=== PATIENT | male | born 1940 | race Caucasian/White ===

== ENCOUNTER 2020-12-13 11:46 | Emergency (ER) | payer OTHER ==
[~2020-12-13] VITALS: Ht 175.3 cm; Wt 72.6 kg
[~2020-12-13 11:46] MED LIST: ALBU90OI INH; AMLO10 PO; ASPIRIN-DIPYRI1 EACH PO; CLOBET30L TOP; FLUTICASONE-SA1 EAC4; Hydrochloroth12.5 MG PO; LISI20 PO; ROSU5 PO; STRIVERDI RESPIM4 GM; TAMS.4ER PO
[2020-12-13 12:21] LABS: BASOPHILS ABSOLUTE AUTO 0.02 K/mm3 (0.00-0.23); BASOPHILS PERCENT AUTO 0 % (0-2); EOSINOPHILS ABSOLUTE AUTO 0.01 K/mm3 (0.00-0.68); EOSINOPHILS PERCENT AUTO 0 % (0-6); Hematocrit 39.7 % (37.0-53.0); Hemoglobin 13.2 g/dL (13.5-17.5); IMMATURE GRAN ABSOLUTE AUTO 0.02 K/mm3 (0.00-0.10); IMMATURE GRAN PERCENT AUTO 0 % (0-1); LYMPHOCYTES ABSOLUTE AUTO 0.87 K/mm3 (0.84-5.20); LYMPHOCYTES PERCENT AUTO 11 % (21-46); MONOCYTES ABSOLUTE AUTO 0.42 K/mm3 (0.16-1.47); MONOCYTES PERCENT AUTO 5 % (4-13); Mean Corpuscular HGB 31.5 pg (26.0-34.0); Mean Corpuscular HGB Conc 33.2 g/dL (31.5-36.5); Mean Corpuscular Volume 95 fL (80-100); NEUTROPHILS ABSOLUTE AUTO 6.65 K/mm3 (1.96-9.15); NEUTROPHILS PERCENT AUTO 83 % (41-73); Platelet Count 252 K/mm3 (150-400); RDW Coefficient Variation 12.2 % (11.7-14.2); RDW Standard Deviation 42.4 fL (35.1-46.3); Red Blood Cell Count 4.19 M/mm3 (4.30-5.90); White Blood Cell Count 7.99 K/mm3 (4.00-11.30)
[2020-12-13 12:38] LABS: Alanine Aminotransfer (ALT/SGP 21 U/L (12-78); Albumin, Blood 3.8 g/dL (3.4-5.0); Albumin/Globulin Ratio 1.2 (0.8-1.8); Alk Phos 47 U/L (50-136); Anion Gap 4 mmol/L (6-16); Aspartate Aminotrans (AST/SGOT 13 U/L (12-37); Bilirubin, Total 0.5 mg/dL (0.1-1.0); Blood Urea Nitrogen 18 mg/dL (8-24); Bun/Creatinine Ratio 17.1 (12.0-20.0); CO2, Blood 28 mmol/L (21-32); Calcium, Blood 9.1 mg/dL (8.5-10.1); Chloride, Blood 104 mmol/L (98-108); Creatinine, Blood 1.05 mg/dL (0.60-1.20); Globulin, Blood 3.3 g/dL (2.2-4.0); Glomerular Filtration Rate >60 (60-); Glucose, Blood 95 mg/dL (70-99); Sodium, Blood 136 mmol/L (136-145); Total Protein, Blood 7.1 g/dL (6.4-8.2); Troponin I <0.015 ng/mL (0.000-0.040)
[2020-12-13] MEDS ORDERED: BACITO TOP (13:48)
== END 2020-12-13 14:16 | disposition home or self-care (01) ==
LOC: ER 11:46
PROVIDERS: Emergency Medicine
DX: R55 Syncope and collapse (principal); R00.1 Bradycardia, unspecified; T24.211A Burn of second degree of right thigh, initial encounter; T31.0 Burns involving less than 10% of body surface; Z79.899 Other long term (current) drug therapy; X10.0XXA Contact with hot drinks, initial encounter
CPT/HCPCS: 71045; 80053; 82947; 83880; 84484; 85025; 93005; 93010; 93242; 99284-25

== ENCOUNTER 2023-06-18 18:43 | Inpatient (IN) | payer OTHER ==
[~2023-06-18] VITALS: Ht 172.7 cm; Wt 75.7 kg
[~2023-06-18 18:43] MED LIST changes: +BACITO TOP
[2023-06-18 19:16] LABS: BASOPHILS ABSOLUTE AUTO 0.04 K/mm3 (0.00-0.23); BASOPHILS PERCENT AUTO 0 % (0-2); Bicarbonate Venous 21.6 mmol/L (24.0-30.0); EOSINOPHILS ABSOLUTE AUTO 0.01 K/mm3 (0.00-0.68); EOSINOPHILS PERCENT AUTO 0 % (0-6); Hematocrit 45.1 % (37.0-53.0); Hemoglobin 15.2 g/dL (13.5-17.5); IMMATURE GRAN ABSOLUTE AUTO 0.13 K/mm3 (0.00-0.10); IMMATURE GRAN PERCENT AUTO 1 % (0-1); LYMPHOCYTES ABSOLUTE AUTO 2.88 K/mm3 (0.84-5.20); LYMPHOCYTES PERCENT AUTO 14 % (21-46); MONOCYTES ABSOLUTE AUTO 1.71 K/mm3 (0.16-1.47); MONOCYTES PERCENT AUTO 9 % (4-13); Mean Corpuscular HGB 31.5 pg (26.0-34.0); Mean Corpuscular HGB Conc 33.7 g/dL (31.5-36.5); Mean Corpuscular Volume 94 fL (80-100); Mean Platelet Volume 10.8 fL (9.1-12.4); NEUTROPHILS ABSOLUTE AUTO 15.26 K/mm3 (1.96-9.15); NEUTROPHILS PERCENT AUTO 76 % (41-73); PCO2 Venous 49.8 mmHg (38-42); Platelet Count 298 K/mm3 (150-400); RDW Coefficient Variation 12.4 % (11.7-14.2); RDW Standard Deviation 42.8 fL (35.1-46.3); Red Blood Cell Count 4.82 M/mm3 (4.30-5.90); White Blood Cell Count 20.03 K/mm3 (4.00-11.30)
[2023-06-18] MEDS ORDERED: FLUT.05NI (19:19)
[2023-06-18] MEDS ORDERED: Ventolin5 MG/1 ML INH (19:19)
[2023-06-18] MEDS ORDERED: DESONIDE15 G1 (19:20)
[2023-06-18] MEDS ORDERED: PRED20 PO (19:20)
[2023-06-18] MEDS ORDERED: Voltaren100 GM (19:20)
[2023-06-18] MEDS ORDERED: KETO15TC (19:20)
[2023-06-18] MEDS ORDERED: LORA10ER (19:21)
[2023-06-18 19:43] LABS: Albumin, Blood 4.3 g/dL (3.4-5.0); Albumin/Globulin Ratio 0.9 (0.8-1.8); Bun/Creatinine Ratio 25.2 (12.0-20.0); Calcium, Blood 9.9 mg/dL (8.5-10.1); Creatinine, Blood 1.11 mg/dL (0.60-1.20); Globulin, Blood 4.7 g/dL (2.2-4.0)
[2023-06-18 19:50] LABS: Influenza A, PCR NEGATIVE (NEGATIVE); Influenza B, PCR NEGATIVE (NEGATIVE); SARS-Cov-2 (COVID-19) PCR, MMC NEGATIVE (NEGATIVE)
[2023-06-18 19:51] LABS: Resp Syncytial Virus, PCR POSITIVE (NEGATIVE)
[2023-06-18 23:20] VITALS: BP 114/58
--- NOTE | 2023-06-19 00:14 | NUR ---
ADMIT NOTE PATIENT ARRIVED TO PCU 01 VIA STRETCHER. PATIENT IS ALERT AND ORIENTED X4 AND WAS ABLE TO STAND TO TRANSFER TO THE BED. PATIENT IS AUDIBLY WHEEZY WITH TACHYPNIA. RT ADMINISTERED BREATHING TREATMENT. PATIENT SATING 94 ON 3 LITERS O2 VIA NC. VITAL SIGNS STABLE. AT BEDSIDE. WILL CONTINUE TO MONITOR. CALL LIGHT WITHIN REACH.
[2023-06-19 03:48] VITALS: BP 107/51
--- NOTE | 2023-06-19 06:33 | NUR ---
SHIFT SUMMARY PATIENT ALERT AND ORIENTED X4. PATIENT DENIED HAVING ANY CHEST PAIN OR SHORTNESS OF BREATH. PATIENT STATES HE FEELS FINE AND WANTS TO GO HOME TODAY. PATIENT WAS ON 3 LITERS O2 VIA NC WHILE AWAKE AND 5 LITERS WHILE SLEEPING, TRIALED PATIENT ON ROOM AIR AFTER HE WOKE UP THIS MORNING AND HE DESATED TO 87%. PATIENT CURRENTLY ON 2 LITERS O2 VIA NC SATING 92%. VITAL SIGNS STABLE, SINUS RHYTHM ON TELE. WILL CONTINUE TO MONITOR. CALL LIGHT WITHIN REACH.
[2023-06-19 08:00] VITALS: BP 130/99
[2023-06-19 11:55] VITALS: BP 126/74
[2023-06-19 15:14] VITALS: BP 138/81
--- NOTE | 2023-06-19 18:05 | NUR ---
PT SUMMARY: PT SATS KEPT ABOVE 90% ON RA, PT STILL HAS SOME MOIST COUGH AND SOME AUDIBLE WHEEZES BREATHING TX PER RT, PT ALSO DEMONSTRTED USE OF FLUTTER VALVE, VITALS HRR SR 80-100'S, SBP 130'S, AFEBRILE. PT FORGETFUL AT TIMES ALERT AND ORIENTED X3-4, ABLE TO MAKE NEEDS KNOWN. PT AMBULATING SBA TO THE BATHROOM. FAMLIY AT THE BEDSIDE MOSTLY ALL DAY TODAY. PT HAS GREAT APPETITE. PT REMAINS ON IV ABO AND STEROIDS. NO OTHER ISSUES REPORTED FOR THE SHIFT. PT IN BED RESTING CALL LIGHTS IN REACH WILL REPORT TO ONCOMING SHIFT
[2023-06-19 20:37] VITALS: BP 144/97
[2023-06-19 23:31] VITALS: BP 133/107
[2023-06-20 03:27] VITALS: BP 118/91
[2023-06-20 03:44] LABS: BASOPHILS ABSOLUTE AUTO 0.01 K/mm3 (0.00-0.23); BASOPHILS PERCENT AUTO 0 % (0-2); EOSINOPHILS ABSOLUTE AUTO 0.06 K/mm3 (0.00-0.68); EOSINOPHILS PERCENT AUTO 0 % (0-6); Hematocrit 40.8 % (37.0-53.0); Hemoglobin 14.1 g/dL (13.5-17.5); IMMATURE GRAN PERCENT AUTO 1 % (0-1); LYMPHOCYTES ABSOLUTE AUTO 0.53 K/mm3 (0.84-5.20); LYMPHOCYTES PERCENT AUTO 4 % (21-46); MONOCYTES ABSOLUTE AUTO 0.78 K/mm3 (0.16-1.47); MONOCYTES PERCENT AUTO 5 % (4-13); Mean Corpuscular HGB 31.9 pg (26.0-34.0); Mean Corpuscular HGB Conc 34.6 g/dL (31.5-36.5); Mean Corpuscular Volume 92 fL (80-100); Mean Platelet Volume 10.7 fL (9.1-12.4); NEUTROPHILS ABSOLUTE AUTO 13.79 K/mm3 (1.96-9.15); NEUTROPHILS PERCENT AUTO 90 % (41-73); Platelet Count 262 K/mm3 (150-400); RDW Coefficient Variation 12.5 % (11.7-14.2); RDW Standard Deviation 42.7 fL (35.1-46.3); Red Blood Cell Count 4.42 M/mm3 (4.30-5.90); White Blood Cell Count 15.27 K/mm3 (4.00-11.30)
[2023-06-20 04:08] LABS: Bun/Creatinine Ratio 32.1 (12.0-20.0); Calcium, Blood 9.2 mg/dL (8.5-10.1); Creatinine, Blood 1.09 mg/dL (0.60-1.20); Potassium, Blood 3.9 mmol/L (3.5-5.5)
[2023-06-20 05:41] LABS: Base Excess Venous -0.5 mmol/L; Bicarbonate Venous 24.2 mmol/L (24.0-30.0); PCO2 Venous 36.3 mmHg (38-42); pH Blood Venous 7.43 (7.34-7.37)
--- NOTE | 2023-06-20 06:02 | NUR ---
SHIFT SUMMARY PATIENT ALERT AND ORIENTED X4. INDEPENDENT IN ROOM. HAD NO COMPLAINTS OF CHEST PAIN OR SHORTNESS OF BREATH. MEDICATED PER EMAR FOR A SORE THROAT. REQURED 2 LITERS O2 VIA NC WHILE SLEEPING TO MAINTAIN SPO2 >90%. LUNG SOUNDS WHEEZY. VITAL SIGNS STABLE. PATIENT KEEPS ASKING IF HE'S GOING TO BE ABLE TO GO HOME TODAY, STATES THAT HE FEELS MUCH BETTER. NO ACUTE ISSUES NOTED OVERNIGHT. WILL CONTINUE TO MONITOR. CALL LIGHT WITHIN REACH.
[2023-06-20 09:39] VITALS: BP 122/78
[2023-06-20] MEDS ORDERED: Acetaminophen650 M1 PO (11:50)
--- NOTE | 2023-06-20 13:32 | NUR ---
DISCHARGE: PT D/C PCU 1 @1215 VIA WHEELCHAIR. EDUCATION AND DISCHARGE INSTRUCTIONS PROVIDED TO FAMILY AND PT. ALL BELONGINGS WITH PT.
[2023-06-20] MEDS ORDERED: Aspir 8181 MG PO (19:32)
[2023-06-22] MEDS ORDERED: ELIQUIS5 M2 PO (15:22)
[2023-06-22] MEDS ORDERED: DILTIAZEM 24HR240 M4 PO (15:22)
[2023-06-22] MEDS ORDERED: IPRAT-ALBUT 0.5-3 ML INH (15:23)
== END 2023-06-20 12:53 | disposition home or self-care (01) | DRG 193 ==
LOC: ER 18:43 → ERHOLD 20:05 → PCU 20:05 → EDBEDREQ 20:06 → PCU 23:02
PROVIDERS: Internal Medicine; Student in an Organized Health Care Education/Training Program; ADMIT Internal Medicine
DX: J12.1 Respiratory syncytial virus pneumonia (principal); J96.01 Acute respiratory failure with hypoxia; J21.0 Acute bronchiolitis due to respiratory syncytial virus; J44.0 Chronic obstructive pulmonary disease with (acute) lower respiratory infection; J44.1 Chronic obstructive pulmonary disease with (acute) exacerbation; E87.20 Acidosis, unspecified; I48.91 Unspecified atrial fibrillation; I25.10 Atherosclerotic heart disease of native coronary artery without angina pectoris; I10 Essential (primary) hypertension; I73.9 Peripheral vascular disease, unspecified; Z86.73 Personal history of transient ischemic attack (TIA), and cerebral infarction without residual deficits; Z85.828 Personal history of other malignant neoplasm of skin; Z87.19 Personal history of other diseases of the digestive system; N40.0 Benign prostatic hyperplasia without lower urinary tract symptoms; Z90.49 Acquired absence of other specified parts of digestive tract; Z87.891 Personal history of nicotine dependence; Z88.8 Allergy status to other drugs, medicaments and biological substances; Z79.82 Long term (current) use of aspirin; Z79.811 Long term (current) use of aromatase inhibitors; Z79.899 Other long term (current) drug therapy
CPT/HCPCS: 0241U; 36415; 71045; 80048; 80053; 82803; 83880; 84145; 84484; 85025; 93005; 93010; 94640; 94644; 94664; 94760; 96365; 96366; 96368; 99285-25; A9270; C9113; J0456; J0696; J1650; J2930; J7050

== ENCOUNTER 2023-07-14 09:11 | Emergency (ER) | payer OTHER ==
[~2023-07-14] VITALS: Ht 172.7 cm; Wt 77.6 kg
[~2023-07-14 09:11] MED LIST changes: +Acetaminophen650 M1 PO; +Aspir 8181 MG PO; +DESONIDE15 G1; +DILTIAZEM 24HR240 M4 PO; +ELIQUIS5 M2 PO; +FLUT.05NI; +IPRAT-ALBUT 0.5-3 ML INH; +KETO15TC; +LORA10ER; +PRED20 PO; +Ventolin5 MG/1 ML INH; +Voltaren100 GM
[2023-07-14 09:26] VITALS: BP 125/77
[2023-07-14] MEDS ORDERED: Zithromax250 MG PO (09:31)
== END 2023-07-14 10:45 | disposition home or self-care (01) ==
LOC: ER 09:11
DX: R22.0 Localized swelling, mass and lump, head (principal); I73.9 Peripheral vascular disease, unspecified; I10 Essential (primary) hypertension; N40.0 Benign prostatic hyperplasia without lower urinary tract symptoms; I25.10 Atherosclerotic heart disease of native coronary artery without angina pectoris; T50.905A Adverse effect of unspecified drugs, medicaments and biological substances, initial encounter; Z79.899 Other long term (current) drug therapy; Z79.01 Long term (current) use of anticoagulants; Z86.73 Personal history of transient ischemic attack (TIA), and cerebral infarction without residual deficits
CPT/HCPCS: 99283

== ENCOUNTER 2023-08-01 12:39 | Emergency (ER) | payer OTHER ==
[~2023-08-01] VITALS: Ht 172.7 cm; Wt 76.7 kg
[~2023-08-01 12:39] MED LIST changes: +Zithromax250 MG PO
[2023-08-01 13:12] LABS: BASOPHILS ABSOLUTE AUTO 0.03 K/mm3 (0.00-0.23); BASOPHILS PERCENT AUTO 1 % (0-2); EOSINOPHILS PERCENT AUTO 2 % (0-6); Hematocrit 40.2 % (37.0-53.0); Hemoglobin 13.4 g/dL (13.5-17.5); IMMATURE GRAN ABSOLUTE AUTO 0.04 K/mm3 (0.00-0.10); IMMATURE GRAN PERCENT AUTO 1 % (0-1); LYMPHOCYTES ABSOLUTE AUTO 1.05 K/mm3 (0.84-5.20); LYMPHOCYTES PERCENT AUTO 16 % (21-46); MONOCYTES ABSOLUTE AUTO 0.68 K/mm3 (0.16-1.47); MONOCYTES PERCENT AUTO 10 % (4-13); Mean Corpuscular HGB 30.8 pg (26.0-34.0); Mean Corpuscular HGB Conc 33.3 g/dL (31.5-36.5); Mean Corpuscular Volume 92 fL (80-100); Mean Platelet Volume 9.7 fL (9.1-12.4); NEUTROPHILS ABSOLUTE AUTO 4.72 K/mm3 (1.96-9.15); NEUTROPHILS PERCENT AUTO 71 % (41-73); Platelet Count 265 K/mm3 (150-400); RDW Coefficient Variation 12.6 % (11.7-14.2); RDW Standard Deviation 42.9 fL (35.1-46.3); Red Blood Cell Count 4.35 M/mm3 (4.30-5.90); White Blood Cell Count 6.62 K/mm3 (4.00-11.30)
[2023-08-01 13:35] LABS: Influenza A, PCR NEGATIVE (NEGATIVE); Influenza B, PCR NEGATIVE (NEGATIVE); Resp Syncytial Virus, PCR NEGATIVE (NEGATIVE); SARS-Cov-2 (COVID-19) PCR, MMC NEGATIVE (NEGATIVE)
[2023-08-01 13:41] LABS: Albumin, Blood 3.4 g/dL (3.4-5.0); Albumin/Globulin Ratio 0.8 (0.8-1.8); Bilirubin, Total 0.4 mg/dL (0.1-1.0); Bun/Creatinine Ratio 20.5 (12.0-20.0); Calcium, Blood 9.3 mg/dL (8.5-10.1); Creatinine, Blood 0.88 mg/dL (0.60-1.20); Globulin, Blood 4.1 g/dL (2.2-4.0); Potassium, Blood 3.8 mmol/L (3.5-5.5); Total Protein, Blood 7.5 g/dL (6.4-8.2)
[2023-08-01] MEDS ORDERED: LISINOPRIL2.5 MG (14:48)
[2023-08-01 16:45] VITALS: BP 144/58
== END 2023-08-01 16:58 | disposition home or self-care (01) ==
LOC: ER 12:39
PROVIDERS: Student in an Organized Health Care Education/Training Program
DX: R06.02 Shortness of breath (principal); Z88.0 Allergy status to penicillin; Z88.8 Allergy status to other drugs, medicaments and biological substances; Z79.51 Long term (current) use of inhaled steroids; Z79.01 Long term (current) use of anticoagulants; Z79.899 Other long term (current) drug therapy; I10 Essential (primary) hypertension; I48.91 Unspecified atrial fibrillation; Z86.73 Personal history of transient ischemic attack (TIA), and cerebral infarction without residual deficits; Z87.891 Personal history of nicotine dependence
CPT/HCPCS: 0241U; 71046; 80053; 83880; 84484; 85025; 93005; 93010; 99284-25

== ENCOUNTER 2023-08-07 18:39 | Observation (INO) | payer OTHER ==
[~2023-08-07] VITALS: Ht 170.2 cm; Wt 72.6 kg
[~2023-08-07 18:39] MED LIST changes: +Prinivil10 MG PO
[2023-08-07 19:14] LABS: Bicarbonate Venous 25.4 mmol/L (24.0-30.0); PCO2 Venous 52.7 mmHg (38-42); pH Blood Venous 7.34 (7.34-7.37)
[2023-08-07 19:18] LABS: BASOPHILS ABSOLUTE AUTO 0.02 K/mm3 (0.00-0.23); BASOPHILS PERCENT AUTO 0 % (0-2); EOSINOPHILS PERCENT AUTO 2 % (0-6); Hematocrit 38.7 % (37.0-53.0); IMMATURE GRAN ABSOLUTE AUTO 0.02 K/mm3 (0.00-0.10); IMMATURE GRAN PERCENT AUTO 0 % (0-1); LYMPHOCYTES PERCENT AUTO 18 % (21-46); MONOCYTES ABSOLUTE AUTO 0.74 K/mm3 (0.16-1.47); MONOCYTES PERCENT AUTO 11 % (4-13); Mean Corpuscular HGB 31.1 pg (26.0-34.0); Mean Corpuscular HGB Conc 33.6 g/dL (31.5-36.5); Mean Corpuscular Volume 93 fL (80-100); Mean Platelet Volume 10.4 fL (9.1-12.4); NEUTROPHILS ABSOLUTE AUTO 4.43 K/mm3 (1.96-9.15); NEUTROPHILS PERCENT AUTO 68 % (41-73); Platelet Count 254 K/mm3 (150-400); RDW Coefficient Variation 12.6 % (11.7-14.2); Red Blood Cell Count 4.18 M/mm3 (4.30-5.90); White Blood Cell Count 6.51 K/mm3 (4.00-11.30)
[2023-08-07 19:30] LABS: Albumin, Blood 3.4 g/dL (3.4-5.0); Albumin/Globulin Ratio 0.9 (0.8-1.8); Bilirubin, Total 0.4 mg/dL (0.1-1.0); Bun/Creatinine Ratio 22.7 (12.0-20.0); Calcium, Blood 9.1 mg/dL (8.5-10.1); Creatinine, Blood 0.84 mg/dL (0.60-1.20); Globulin, Blood 3.8 g/dL (2.2-4.0); Magnesium, Blood 2.2 mg/dL (1.6-2.4); Potassium, Blood 3.9 mmol/L (3.5-5.5); Total Protein, Blood 7.2 g/dL (6.4-8.2)
[2023-08-07 19:32] LABS: International Normalized Ratio 1.06; Prothrombin Time Results 11.1 Sec (9.7-11.5)
[2023-08-08 00:44] VITALS: BP 163/147
--- NOTE | 2023-08-08 01:44 | NUR ---
PT ARRIVED TO FLOOR AND AMBULATED TO BED WITH SBA. PT HAS EQUAL PUSH PULLS AND STRENGTH X 4. PT ABLE TO SMILE PUFF OUT CHEEKS WITH SOME EFFORT AND STICK OUT TOUNGE, NO DEVIATION. PT HAVING SOME DIFFICULTY WITH FALLOWING COMANDS. PT HAVING SOME DIFFICULTY WITH WORD FINDING. PT UNABLE TO SAY WHAT MONTH OR DAY BUT CAN NAME WHO IS PRESEDENT. CALL LIGHT IN REACH. PT HAD C/O BRUNER AND WAS GIVEN TYLENOL AND MED FOR SBP GRATER TAHN 160. PT KEPT SETTING OFF ALARM. PT APPARENTLY SLEEPS IN RECLINER AT HOME. CAHIR ALARM ON.
[2023-08-08 05:41] LABS: BASOPHILS ABSOLUTE AUTO 0.03 K/mm3 (0.00-0.23); BASOPHILS PERCENT AUTO 0 % (0-2); EOSINOPHILS ABSOLUTE AUTO 0.07 K/mm3 (0.00-0.68); EOSINOPHILS PERCENT AUTO 1 % (0-6); Hematocrit 38.5 % (37.0-53.0); Hemoglobin 13.2 g/dL (13.5-17.5); IMMATURE GRAN ABSOLUTE AUTO 0.04 K/mm3 (0.00-0.10); IMMATURE GRAN PERCENT AUTO 0 % (0-1); LYMPHOCYTES ABSOLUTE AUTO 0.97 K/mm3 (0.84-5.20); LYMPHOCYTES PERCENT AUTO 10 % (21-46); MONOCYTES ABSOLUTE AUTO 0.78 K/mm3 (0.16-1.47); MONOCYTES PERCENT AUTO 8 % (4-13); Mean Corpuscular HGB 31.3 pg (26.0-34.0); Mean Corpuscular HGB Conc 34.3 g/dL (31.5-36.5); Mean Corpuscular Volume 91 fL (80-100); Mean Platelet Volume 10.3 fL (9.1-12.4); NEUTROPHILS ABSOLUTE AUTO 8.32 K/mm3 (1.96-9.15); NEUTROPHILS PERCENT AUTO 82 % (41-73); Platelet Count 236 K/mm3 (150-400); RDW Coefficient Variation 12.7 % (11.7-14.2); RDW Standard Deviation 42.1 fL (35.1-46.3); Red Blood Cell Count 4.22 M/mm3 (4.30-5.90); White Blood Cell Count 10.21 K/mm3 (4.00-11.30)
--- NOTE | 2023-08-08 05:50 | NUR ---
SHIFT SUMMERY. PT NOT SEEMING TO HAVE PHYSICAL DEFFICETS. BUT PT PT HAS DELAYED RESPONSES. DIFFICULTY WITH WORD FINDING AND NOT SEEEMING TO UNDERSTAND VERBAL COMANDS GIVEN. PT SOME WHAT CONFUSED PULLING OFF TELE AND ATTEMPTING TO PULL OUT IV. CALL LIGHT IN REACH , BED ALARM ON ,
[2023-08-08 06:07] LABS: Bun/Creatinine Ratio 23.8 (12.0-20.0); Creatinine, Blood 0.71 mg/dL (0.60-1.20); Potassium, Blood 3.7 mmol/L (3.5-5.5)
[2023-08-08 06:08] LABS: CHOL/HDL RATIO 2.9; Cholesterol 123 mg/dL (50-200); HDL Cholesterol 42 mg/dL (>39); LDL/HDL RATIO 1.5; Low Density Lipoprotein Chol 61 mg/dL (0-110); Triglycerides 98 mg/dL (30-160); Very Low Density Lipoprot Chol 19 mg/dL (6-32)
[2023-08-08 08:10] VITALS: BP 150/105
[2023-08-08 11:10] VITALS: BP 129/73
[2023-08-08 15:18] VITALS: BP 114/75
[2023-08-08 19:31] VITALS: BP 134/69
--- NOTE | 2023-08-08 19:37 | NUR ---
SHIFT SUMMARY PATIENT WORKED WITH ALL THERAPIES TODAY, DIFFICULTY FOLLOWING INSTRUCTION BUT ABLE TO WALK SBA TO BATHROOM WITH NO DEVICES. FORGETFUL, MOSTLY COOPERATIVE. NEUROS NEGATIVE ON ASSESSMENT. BED ALARM SORTER UPHOLSTERY PARTS LIGHT IN REACH. PATIENT DOES NOT CALL. FAMILY AT BEDSIDE THIS EVENING UNTIL DINNER.
[2023-08-08] MEDS ORDERED: ALBU90OI INH (20:22)
[2023-08-08] MEDS ORDERED: Acetaminophen650 M1 PO (20:22)
[2023-08-09] MEDS ORDERED: DESONIDE TOP (01:07)
[2023-08-09] MEDS ORDERED: FLONASE ALLERG9.9 M2 (01:08)
[2023-08-09] MEDS ORDERED: Ketoconazole120 ML TOP (01:09)
[2023-08-09] MEDS ORDERED: MULVITA PO (01:09)
--- NOTE | 2023-08-09 02:25 | NUR ---
SHIFT SUMMERY, PT RESTSING IN BED AT THIS TIME BUT DOSE NOT APPEAR TO BE ASLEEP. PT HAD TAKEN OFF TELE SEVERAL TIMES THIS SHIFT BUT ALLOWED TELE TO BE PLACED BACK ON AFTER EXSPLANING DR WANTED IT ON DUE TO PT HAVEING A TIA. ABOUT [phone]. PT BECAME VERY ANGERY AND WAS YELLING AT OIL HEATERMAN WHO WAS TRYING TO PLACE TELE BACK ON THIS NURSE WENT IN TO ROOM AND TALKED WITH PT AND AGAIN EXSPALNED PT HAD A TIA AND TELE WAS TO MONITOR PTS HEART AND TRY TO KEEP HIM SAFE BY LETTING US KNOW IF SOMETHING UNUSUAL WAS HAPPENING. PT YELED AND SAID HE WAS AN ADULT HE WAS 58 { PT IS 82} AND HE WAS NOT GOING TO HAVE ANY ONE TELL HIM WHAT TO DO. PT SAID HE WANTED TO LEAVE. TOLD PT HE WOULD HAVE TO SIGH PAPER TO GO AMA. WAS HOPEING TO TALK WITHS PTS TO SEE IF SHE COULD CALM PT DOWN AND CHANGE HIS MIND. PT FALLOWED THIS NURSE TO SEE CHARGE NURSE. TRYED TO FIND PTS WIFES PHONE NUMBER [id number] BESS OUT TO BE THE PHONE PT HAD. PTS HAD LEFT HER PHONE FOR PT SO HE COULD HAVE A PHONE. NO OTHER NUMBERS TO CALL FOR FAMILY ON PTS CHART. PT USED PHONE AND CALLED HIS DAUGHTER WHO WAS AT PTS HOUSE WITH PTS . SAKED PT IF I COULD TALK TO DAUGHTER AND PT SATED NO. WAS PUT ON PHONE AND I ASKED IF I COULD TALK TO HER AND PT SAID NO. PT EVENTUALY ALLOWED ME TO SPEAK WITH HIS . TOLD WHAT THE PROB SEEMED TO BE. AND AFTER QUITE A WHILE PT HUNG UP PHONE TURNED OFF LIGHT AND LAYED DOWN IN BED. PT OCCASIONALY UP IN [address]. LET PT ALONE FOR A WHILE IN HOPES PT WOULD ALLOW TELE BACK ON BUT PT REFUSED RIVERA HYDE CALLED AND TELE DC. PT NTO SEEMING TO HAVE PAIN AND HE IS ABLE TO MOVE AND WALK WNL PT ABLE TO TALK WITH MUCH LESS HESITATIONE THEN THE NIGHT BEFORE, BUT THINKING SOME WHAT CONFUSED. PT HAS CALL LIGHT IN REACH.
[2023-08-09 07:21] VITALS: BP 112/89
[2023-08-09] MEDS ORDERED: ASPI81CH PO (10:55)
[2023-08-09] MEDS ORDERED: Desowen60 GM TOP (10:57)
--- NOTE | 2023-08-09 11:25 | NUR ---
SHIFT/DISCHARGE SUMMARY Pt up in bathroom at shift change this am. Pt dressed and wants to go home. Ambulating with steady gait. IV found on recliner. Pt alert x2 this am. Calm and cooperative. POC reviewed with return verbal understanding. Pt agrees to wait for Dr to round before leaving. and daughter at bedside mid morning speaking with Dr. Chin. All discharge instructions reviewed with pt and . Pt to lobby with family.
== END 2023-08-09 11:44 | disposition home or self-care (01) ==
LOC: ER 18:39 → MEDS 18:40 → ER 08-08 00:10 → MEDS 08-08 00:10 → ENPENDDIS 08-09 10:32 → MEDS 08-09 11:44
PROVIDERS: Student in an Organized Health Care Education/Training Program; ADMIT Internal Medicine
DX: I63.9 Cerebral infarction, unspecified (principal); I48.91 Unspecified atrial fibrillation; I16.1 Hypertensive emergency; I10 Essential (primary) hypertension; I25.10 Atherosclerotic heart disease of native coronary artery without angina pectoris; Z87.891 Personal history of nicotine dependence
CPT/HCPCS: 36415; 70450; 80048; 80053; 80061; 82803; 82947; 83036; 83735; 85025; 85610; 92523; 92610; 93005; 93010; 93306; 93880; 96374; 97112; 97161; 97165; 97535; 99285-25; A9270; G0378; J0360

== ENCOUNTER 2023-08-20 20:25 | Observation (INO) | payer OTHER ==
[~2023-08-20] VITALS: Ht 182.9 cm; Wt 90.7 kg
[~2023-08-20 20:25] MED LIST changes: +ASPI81CH PO; +DESONIDE TOP; +Desowen60 GM TOP; +FLONASE ALLERG9.9 M2; +Ketoconazole120 ML TOP; +MULVITA PO
[2023-08-20] MEDS ORDERED: Ondansetron HCl 2 MG / ML 2ML Vial IV ONE (20:45)
[2023-08-20] MEDS ORDERED: Ondansetron HCl 2 MG / ML 2ML Vial ONE (20:46)
[2023-08-20 21:09] LABS: BASOPHILS ABSOLUTE AUTO 0.03 K/mm3 (0.00-0.23); BASOPHILS PERCENT AUTO 0 % (0-2); EOSINOPHILS ABSOLUTE AUTO 0.14 K/mm3 (0.00-0.68); EOSINOPHILS PERCENT AUTO 2 % (0-6); Hematocrit 38.7 % (37.0-53.0); Hemoglobin 13.2 g/dL (13.5-17.5); IMMATURE GRAN ABSOLUTE AUTO 0.03 K/mm3 (0.00-0.10); IMMATURE GRAN PERCENT AUTO 0 % (0-1); LYMPHOCYTES ABSOLUTE AUTO 1.05 K/mm3 (0.84-5.20); LYMPHOCYTES PERCENT AUTO 14 % (21-46); MONOCYTES ABSOLUTE AUTO 0.52 K/mm3 (0.16-1.47); MONOCYTES PERCENT AUTO 7 % (4-13); Mean Corpuscular HGB 31.2 pg (26.0-34.0); Mean Corpuscular HGB Conc 34.1 g/dL (31.5-36.5); Mean Corpuscular Volume 92 fL (80-100); Mean Platelet Volume 9.9 fL (9.1-12.4); NEUTROPHILS PERCENT AUTO 76 % (41-73); Platelet Count 266 K/mm3 (150-400); RDW Coefficient Variation 12.8 % (11.7-14.2); RDW Standard Deviation 42.7 fL (35.1-46.3); Red Blood Cell Count 4.23 M/mm3 (4.30-5.90); White Blood Cell Count 7.37 K/mm3 (4.00-11.30)
[2023-08-20 21:27] LABS: Alanine Aminotransfer (ALT/SGP 21 U/L (12-78); Albumin, Blood 3.7 g/dL (3.4-5.0); Alk Phos 66 U/L (50-136); Anion Gap 5 mmol/L (6-16); Aspartate Aminotrans (AST/SGOT 21 U/L (12-37); Bilirubin, Total 0.3 mg/dL (0.1-1.0); Blood Urea Nitrogen 20 mg/dL (8-24); Bun/Creatinine Ratio 19.2 (12.0-20.0); CO2, Blood 27 mmol/L (21-32); Chloride, Blood 109 mmol/L (98-108); Creatinine, Blood 1.04 mg/dL (0.60-1.20); Ethanol (Alcohol), Blood, Med <3 mg/dL; Globulin, Blood 3.7 g/dL (2.2-4.0); Glomerular Filtration Rate 71 (60-); Glucose, Blood 118 mg/dL (70-99); Potassium, Blood 3.9 mmol/L (3.5-5.5); Sodium, Blood 141 mmol/L (136-145); Total Protein, Blood 7.4 g/dL (6.4-8.2)
[2023-08-20] MEDS ORDERED: Metoclopramide HCl 5MG / ML 2ML Vial IV ONE (22:05)
[2023-08-20] MEDS ORDERED: DiphenhydrAMINE HCl 50 MG/ML 1ML Vial IV ONE (22:05)
[2023-08-20 22:36] LABS: Source, Urine Clean Catch
[2023-08-20 23:04] LABS: Bilirubin, Urine Neg (Neg); Blood, Urine Neg (Neg); Glucose Qualitative, Urine Neg (Neg); Ketones, Urine Neg (Neg); Leukocyte Esterase, Urine Neg (Neg); Nitrite, Urine Neg (Neg); Protein, Urine Neg (Neg); Urobilinogen, Urine NORM (Normal)
[2023-08-20] MEDS ORDERED: Magnesium Sulf 2 GM/Water 50ML 50 ML IV ONE (23:05)
[2023-08-20] MEDS ORDERED: NS 1,000 ML IV SCH (23:05)
[2023-08-20 23:18] LABS: Appearance, Urine Clear (Clear); Color, Urine Yellow (P-Yellow)
[2023-08-20 23:29] LABS: U Amphetamine Screen Not Detected; U Barbituate Screen Not Detected; U Benzodiazapine Screen Not Detected; U Buprenorphine Screen Not Detected; U Cannabinoids Screen Not Detected; U Cocaine Screen Not Detected; U Methadone Screen Not Detected; U Methamphetamine Screen Not Detected; U Opiates Screen Not Detected; U Oxycodone Screen Not Detected; U Phencyclidine Screen Not Detected
[2023-08-20] MEDS ORDERED: LISINOPRIL 20 MG TAB (23:48)
[2023-08-21] MEDS ORDERED: HydrALAZINE HCl 20 MG / ML 1ML Vial IV PRN (01:10)
[2023-08-21 01:21] VITALS: BP 180/90
[2023-08-21] MEDS ORDERED: FLU VACC QS2023-24(6MOS UP)/PF 60 MCG/0.5 ML SYRINGE IM ONE (01:30)
--- NOTE | 2023-08-21 02:08 | NUR ---
0108: ASSUMED CARE OF PT, REPORT RECEIVED FROM PANCHO RN AND MALLY RN FROM ED. D/T UNKNOWN REASONING, MAGNESIUM WAS NOT PROVIDED IN THE ED AND WILL BE GIVEN UPON ARRIVAL TO THE UNIT PER ORDERS. PT IS ALERT, UNABLE TO ASSESS ORIENTION ACCURATLY AT THIS TIME R/T APHASIA. WILL ATTEMPT ASSESSMENT WITH WHITE BOARD AND PEN WHEN PT WAKES. ABLE TO ANSWER SOME QUESTIONS, FOLLOWS INSTRUCTIONS WELL. PIV TO LEFT AC IS PATENT, WITHOUT REDNESS OR WELLING, INFUSING MAGNESIUM WITHOUT ISSUE. ONE SMALL SCRATCH TO UPPER LEFT SIDE BACK. PT IS ABLE TO MOVE HIMSELF IN BED WITHOUT DIFFICULTY. SEE EMR FOR FULL ASSESSMENT. BED ALARM IS ON, CALL LIGHT IS WITHIN REACH. PT EDUCATED WATER PUMP ASSEMBLER LIGHT, FALL PREVENTION, ROOM/BED ORIENTATION. EDUCATED ON MEDICATIONS, PLAN FOR FURTHER ASSESSMENTS/FUTURE ORDERS. PT ACKNOLEDGES UNDERSTANDING. PLAN FOR BEDSIDE SWALLOW WHEN PT WAKES UP. CURRENTLY LAYING IN BED WITH EYES CLOSED, BREATHING IS EVEN AND UNLABORED. PT REPORTS HE DOES BECOME SOB WITH AMBULATION AT TIMES.
[2023-08-21 02:33] VITALS: BP 177/86
--- NOTE | 2023-08-21 04:37 | NUR ---
0425: PT LAYING IN BED WITH EYES CLOSED, BREATHING IS EVEN AND UNLABORED, BED ALARM IS ON, CALL LIGHT WITHIN REACH. NEEDS ADDRESSED THROUGH THE NIGHT.
--- NOTE | 2023-08-21 04:50 | NUR ---
0450: PT SET OFF BED ALARM UP WALKING TO FIND A BATHROOM IN THE ROOM. STEADY INDEPENDENT GAIT. VOIDED IN TOILET, UNMEASURED R/T NOT ABLE TO INTERCEPT PT. BACK TO BED WITHOUT ISSUE. ASSISTED FOR COMFORT. BED ALARM IS ON, CALL LIGHT WITHIN REACH.
[2023-08-21 05:05] LABS: Hemoglobin 12.4 g/dL (13.5-17.5)
[2023-08-21 05:21] LABS: Bun/Creatinine Ratio 20.2 (12.0-20.0); Calcium, Blood 8.5 mg/dL (8.5-10.1); Creatinine, Blood 0.79 mg/dL (0.60-1.20); Potassium, Blood 3.9 mmol/L (3.5-5.5)
[2023-08-21] MEDS ORDERED: Acetaminophen 325 MG TABLET PO PRN (06:50)
[2023-08-21 07:15] VITALS: BP 182/96
[2023-08-21] MEDS ORDERED: Lisinopril 20 MG Tab PO SCH (09:00)
[2023-08-21] MEDS ORDERED: Aspirin 81 MG Chew PO SCH (09:00)
[2023-08-21] MEDS ORDERED: Apixaban 5 MG Tab PO SCH (09:00)
[2023-08-21] MEDS ORDERED: dilTIAZem HCL 240 MG CAP.CD PO SCH (09:00)
[2023-08-21 10:33] VITALS: BP 179/63
[2023-08-21 11:16] VITALS: BP 170/79
[2023-08-21 11:45] VITALS: BP 149/71
[2023-08-21] MEDS ORDERED: LISI20 PO (15:24)
--- NOTE | 2023-08-21 16:26 | NUR ---
DISCHARGE NOTE PT DISCHARGED TO HOME, PICKED UP BY HIS FAMILY. IV REMOVED. DISCHARGE INFORMATION AND EDUCATION PROVIDED. MEDICATIONS FAXED TO THE PHARMACY OF HIS CHOICE.
== END 2023-08-21 16:25 | disposition home or self-care (01) ==
LOC: ER 20:25 → MEDS 20:26
PROVIDERS: Emergency Medicine; Family Medicine; Student in an Organized Health Care Education/Training Program; ADMIT Internal Medicine
DX: G45.9 Transient cerebral ischemic attack, unspecified (principal); I10 Essential (primary) hypertension; I48.20 Chronic atrial fibrillation, unspecified; D64.9 Anemia, unspecified; I25.10 Atherosclerotic heart disease of native coronary artery without angina pectoris; Z87.891 Personal history of nicotine dependence; Z88.0 Allergy status to penicillin; Z88.8 Allergy status to other drugs, medicaments and biological substances; Z79.01 Long term (current) use of anticoagulants; Z79.82 Long term (current) use of aspirin; Z79.899 Other long term (current) drug therapy
CPT/HCPCS: 36415; 70450; 70496; 70498; 80048; 80053; 81003; 82947; 85014; 85018; 85025; 93005; 93010; 96365; 96366; 96374; 96375; 97110; 97129; 97130; 97161; 97165; 97530; 99285-25; A9270; G0378; J0360; J1200; J2405; J2765; J3475; J7030; Q9967

== ENCOUNTER 2024-02-02 18:50 | Emergency (ER) | payer OTHER ==
[~2024-02-02] VITALS: Ht 172.7 cm; Wt 77.1 kg
[~2024-02-02 18:50] MED LIST changes: +LISINOPRIL 20 MG TAB
[2024-02-02] MEDS ORDERED: Lactated Ringer's 1,000 ML IV ONE (19:00)
[2024-02-02 19:27] LABS: BASOPHILS ABSOLUTE AUTO 0.03 K/mm3 (0.00-0.23); BASOPHILS PERCENT AUTO 0 % (0-2); EOSINOPHILS ABSOLUTE AUTO 0.07 K/mm3 (0.00-0.68); EOSINOPHILS PERCENT AUTO 1 % (0-6); Hematocrit 37.8 % (37.0-53.0); Hemoglobin 12.7 g/dL (13.5-17.5); IMMATURE GRAN ABSOLUTE AUTO 0.03 K/mm3 (0.00-0.10); IMMATURE GRAN PERCENT AUTO 0 % (0-1); LYMPHOCYTES PERCENT AUTO 12 % (21-46); MONOCYTES ABSOLUTE AUTO 0.52 K/mm3 (0.16-1.47); MONOCYTES PERCENT AUTO 8 % (4-13); Mean Corpuscular HGB 30.7 pg (26.0-34.0); Mean Corpuscular HGB Conc 33.6 g/dL (31.5-36.5); Mean Corpuscular Volume 91 fL (80-100); Mean Platelet Volume 10.3 fL (9.1-12.4); NEUTROPHILS ABSOLUTE AUTO 5.45 K/mm3 (1.96-9.15); NEUTROPHILS PERCENT AUTO 79 % (41-73); Platelet Count 235 K/mm3 (150-400); RDW Standard Deviation 43.4 fL (35.1-46.3); Red Blood Cell Count 4.14 M/mm3 (4.30-5.90)
[2024-02-02 19:30] VITALS: BP 105/92
[2024-02-02 19:42] LABS: Albumin, Blood 3.7 g/dL (3.4-5.0); Albumin/Globulin Ratio 1.2 (0.8-1.8); Bilirubin, Total 0.6 mg/dL (0.1-1.0); Bun/Creatinine Ratio 20.2 (12.0-20.0); Calcium, Blood 9.2 mg/dL (8.5-10.1); Creatinine, Blood 1.83 mg/dL (0.60-1.20); Potassium, Blood 4.2 mmol/L (3.5-5.5); Total Protein, Blood 6.7 g/dL (6.4-8.2)
[2024-02-02] MEDS ORDERED: NS 1,000 ML IV SCH (20:45)
== END 2024-02-02 21:51 | disposition home or self-care (01) ==
LOC: ER 18:50
PROVIDERS: Emergency Medicine
DX: T67.5XXA Heat exhaustion, unspecified, initial encounter (principal); E86.0 Dehydration; I10 Essential (primary) hypertension; I48.91 Unspecified atrial fibrillation; Z87.891 Personal history of nicotine dependence; Z86.73 Personal history of transient ischemic attack (TIA), and cerebral infarction without residual deficits; Z79.51 Long term (current) use of inhaled steroids; Z79.899 Other long term (current) drug therapy; Z88.0 Allergy status to penicillin; Z88.8 Allergy status to other drugs, medicaments and biological substances
CPT/HCPCS: 80053; 85025; 93005; 93010; 96360; 99284-25; J7030; J7120

== ENCOUNTER 2024-03-25 10:46 | Emergency (ER) | payer OTHER ==
[~2024-03-25] VITALS: Ht 172.7 cm; Wt 77.1 kg
[2024-03-25 11:01] VITALS: BP 104/62
== END 2024-03-25 11:42 | disposition home or self-care (01) ==
LOC: ER 10:46
DX: S91.205A Unspecified open wound of left lesser toe(s) with damage to nail, initial encounter (principal); I10 Essential (primary) hypertension; I48.91 Unspecified atrial fibrillation; W26.9XXA Contact with unspecified sharp object(s), initial encounter; Z87.891 Personal history of nicotine dependence; Z86.73 Personal history of transient ischemic attack (TIA), and cerebral infarction without residual deficits; Z79.899 Other long term (current) drug therapy; Z88.0 Allergy status to penicillin; Z88.8 Allergy status to other drugs, medicaments and biological substances
CPT/HCPCS: 99282

== ENCOUNTER 2024-09-11 19:07 | Inpatient (IN) | payer OTHER ==
[~2024-09-11] VITALS: Ht 172.7 cm; Wt 82.5 kg
[~2024-09-11 19:07] MED LIST changes: +MethylPREDNISolone Sod Succ 125 MG Vial IV SCH
[2024-09-11] MEDS ORDERED: Ipratropium Bromide INH 0.02% 0.5 mg/2.5ML Vial INH SCH ×2 (19:45→21:45)
[2024-09-11] MEDS ORDERED: Albuterol 2.5 MG/3 ML VIAL INH SCH ×2 (19:45→21:45)
[2024-09-11] MEDS ORDERED: MethylPREDNISolone Sod Succ 125 MG Vial IV ONE (19:45)
[2024-09-11 19:50] LABS: BASOPHILS ABSOLUTE AUTO 0.03 K/mm3 (0.00-0.23); BASOPHILS PERCENT AUTO 0 % (0-2); EOSINOPHILS ABSOLUTE AUTO 0.12 K/mm3 (0.00-0.68); EOSINOPHILS PERCENT AUTO 1 % (0-6); Hematocrit 43.2 % (37.0-53.0); Hemoglobin 14.7 g/dL (13.5-17.5); IMMATURE GRAN ABSOLUTE AUTO 0.03 K/mm3 (0.00-0.10); IMMATURE GRAN PERCENT AUTO 0 % (0-1); LYMPHOCYTES ABSOLUTE AUTO 1.55 K/mm3 (0.84-5.20); LYMPHOCYTES PERCENT AUTO 16 % (21-46); MONOCYTES ABSOLUTE AUTO 1.02 K/mm3 (0.16-1.47); MONOCYTES PERCENT AUTO 10 % (4-13); Mean Corpuscular HGB 31.7 pg (26.0-34.0); Mean Corpuscular Volume 93 fL (80-100); Mean Platelet Volume 10.4 fL (9.1-12.4); NEUTROPHILS ABSOLUTE AUTO 7.11 K/mm3 (1.96-9.15); NEUTROPHILS PERCENT AUTO 72 % (41-73); Platelet Count 239 K/mm3 (150-400); RDW Coefficient Variation 12.5 % (11.7-14.2); RDW Standard Deviation 43.2 fL (35.1-46.3); Red Blood Cell Count 4.64 M/mm3 (4.30-5.90); White Blood Cell Count 9.86 K/mm3 (4.00-11.30)
[2024-09-11 20:02] LABS: Albumin, Blood 4.2 g/dL (3.4-5.0); Bilirubin, Total 0.5 mg/dL (0.1-1.0); Bun/Creatinine Ratio 19.8 (12.0-20.0); Calcium, Blood 9.7 mg/dL (8.5-10.1); Creatinine, Blood 1.16 mg/dL (0.60-1.20); Potassium, Blood 3.9 mmol/L (3.5-5.5); Total Protein, Blood 8.2 g/dL (6.4-8.2)
[2024-09-11 20:29] LABS: Influenza A, PCR NEGATIVE (NEGATIVE); Influenza B, PCR NEGATIVE (NEGATIVE); Resp Syncytial Virus, PCR NEGATIVE (NEGATIVE); SARS-Cov-2 (COVID-19) PCR, MMC NEGATIVE (NEGATIVE)
[2024-09-11] MEDS ORDERED: FLU VACC TS2024-25(6MOS UP)/PF 45 MCG/0.5 ML SYRINGE IM ONE (22:25)
[2024-09-11] MEDS ORDERED: Ipratropium/Albuterol SulF 2.5-0.5MG/3 ML Amp INH SCH (22:25)
[2024-09-11] MEDS ORDERED: Acetaminophen 325 MG TABLET PO PRN (22:25)
[2024-09-11] MEDS ORDERED: Azithromycin 500 MG in NS 250 ML IV SCH (22:58)
[2024-09-11] MEDS ORDERED: Tamsulosin HCl 0.4 MG Cap PO SCH (23:00)
[2024-09-11] MEDS ORDERED: Apixaban 5 MG Tab PO SCH (23:00)
[2024-09-11] MEDS ORDERED: Lisinopril-Hct1 EAC4 PO (23:25)
[2024-09-11] MEDS ORDERED: PSEU120ER PO (23:27)
[2024-09-12 00:21] LABS: Base Excess Venous -10.9 mmol/L; Bicarbonate Venous 17.4 mmol/L (24.0-30.0); PCO2 Venous 23.9 mmHg (38-42); pH Blood Venous 7.38 (7.34-7.37)
[2024-09-12 00:36] LABS: BASOPHILS ABSOLUTE AUTO 0.02 K/mm3 (0.00-0.23); BASOPHILS PERCENT AUTO 0 % (0-2); EOSINOPHILS PERCENT AUTO 0 % (0-6); Hematocrit 40.2 % (37.0-53.0); Hemoglobin 13.4 g/dL (13.5-17.5); IMMATURE GRAN ABSOLUTE AUTO 0.05 K/mm3 (0.00-0.10); IMMATURE GRAN PERCENT AUTO 1 % (0-1); LYMPHOCYTES ABSOLUTE AUTO 0.43 K/mm3 (0.84-5.20); LYMPHOCYTES PERCENT AUTO 4 % (21-46); MONOCYTES ABSOLUTE AUTO 0.14 K/mm3 (0.16-1.47); MONOCYTES PERCENT AUTO 1 % (4-13); Mean Corpuscular HGB 31.9 pg (26.0-34.0); Mean Corpuscular HGB Conc 33.3 g/dL (31.5-36.5); Mean Corpuscular Volume 96 fL (80-100); Mean Platelet Volume 10.3 fL (9.1-12.4); NEUTROPHILS PERCENT AUTO 94 % (41-73); Platelet Count 205 K/mm3 (150-400); RDW Coefficient Variation 12.5 % (11.7-14.2); RDW Standard Deviation 44.3 fL (35.1-46.3); White Blood Cell Count 10.94 K/mm3 (4.00-11.30)
[2024-09-12 00:56] LABS: Albumin, Blood 3.7 g/dL (3.4-5.0); Bilirubin, Total 0.3 mg/dL (0.1-1.0); Bun/Creatinine Ratio 18.1 (12.0-20.0); Creatinine, Blood 1.38 mg/dL (0.60-1.20); Globulin, Blood 3.8 g/dL (2.2-4.0); Magnesium, Blood 1.9 mg/dL (1.6-2.4); Potassium, Blood 2.9 mmol/L (3.5-5.5); Total Protein, Blood 7.5 g/dL (6.4-8.2)
--- NOTE | 2024-09-12 03:42 | NUR ---
Notified MD at 2338 Patient requiring 6L O2. MD placed new orders.
--- NOTE | 2024-09-12 04:05 | NUR ---
MD notified of Patient's potassium 2.6. MD will put in orders. CMP ordered.
[2024-09-12 04:14] VITALS: BP 100/58
[2024-09-12] MEDS ORDERED: Potassium Chloride 20 MEQ TabCR PO ONE ×2 (05:00→08:00)
[2024-09-12] MEDS ORDERED: CefTRIAXone Sodium 1,000 MG in NS 100 ML IV SCH (05:01)
[2024-09-12 05:06] LABS: Albumin, Blood 3.7 g/dL (3.4-5.0); Albumin/Globulin Ratio 0.9 (0.8-1.8); Bilirubin, Total 0.3 mg/dL (0.1-1.0); Bun/Creatinine Ratio 13.7 (12.0-20.0); Calcium, Blood 9.3 mg/dL (8.5-10.1); Creatinine, Blood 2.05 mg/dL (0.60-1.20); Globulin, Blood 3.9 g/dL (2.2-4.0); Potassium, Blood 3.2 mmol/L (3.5-5.5); Total Protein, Blood 7.6 g/dL (6.4-8.2)
--- NOTE | 2024-09-12 05:46 | NUR ---
Notified of Patient's critical lab for lactic acid 9.7.
[2024-09-12] MEDS ORDERED: Insulin Regular 100 UNIT/ML 10ML Vial SC SCH (06:00)
[2024-09-12] MEDS ORDERED: Lactated Ringer's 1,000 ML IV ONE (06:00)
[2024-09-12] MEDS ORDERED: Lactated Ringer's 1,000 ML IV SCH (06:00)
--- NOTE | 2024-09-12 06:11 | NUR ---
Patient admitted at 2325. Patient currently on tele. No calls. Patient's potassium 3.2 after recheck. Patient has critical lactic acid of 9.7. MD was notified. Patient currently on 6L O2. MD aware. Patient is a SBA. Patient to have repeat lactic acid labs this morning. Will continue to monitor until day shift resumes cares.
[2024-09-12 07:11] VITALS: BP 107/89
--- NOTE | 2024-09-12 08:04 | NUR ---
MD CALL PT C/O INDIGESTION, SAID HE TAKES ROLAIDS AT HOME. DR SCOTT NOTIFIED, SHE IS PUTTING ORDERS IN.
[2024-09-12] MEDS ORDERED: Calcium Carbonate 500 MG Tab Chew PO PRN (08:10)
[2024-09-12] MEDS ORDERED: GuaiFENesin 600 MG TabCR PO SCH (09:00)
[2024-09-12] MEDS ORDERED: Apixaban 5 MG Tab PO SCH (09:00)
[2024-09-12] MEDS ORDERED: PredniSONE 20 MG Tab PO SCH (09:00)
[2024-09-12] MEDS ORDERED: Lisinopril 20 MG Tab PO SCH (09:00)
[2024-09-12] MEDS ORDERED: Lactobacil 2-S.Thermo-Bifido 1 1 Cap PO SCH (09:00)
[2024-09-12] MEDS ORDERED: Diltiazem HCl 300 MG Cap.CD PO SCH (09:00)
[2024-09-12] MEDS ORDERED: Docusate Sodium 100 MG Cap PO SCH (09:00)
[2024-09-12 11:25] VITALS: BP 109/67
--- NOTE | 2024-09-12 11:30 | NUR ---
MD CALL PT HAS NOT VOIDED SINCE THIS SHIFT AND PER REPORT HAS NOT VOIDED SINCE ADMISSION ~MIDNIGHT. STOOD AND ATTEMPTED TO URINATE BUT NO URGE TO URINATE. BLADDER SCAN LESS THAN 250. DR SCOTT NOTIFIED. ALSO NOTIFIED OF C/O SORE THROAT.
[2024-09-12] MEDS ORDERED: DEXTROMETHORPHAN/BENZOCAINE 1 EACH LOZENGE MT PRN (11:35)
[2024-09-12] MEDS ORDERED: NS 1,000 ML IV SCH (12:00)
[2024-09-12] MEDS ORDERED: Sodium Bicarb 8.4% Inj 100 MEQ in Sodium Chloride 0.45% 1,000 ML IV SCH (13:00)
--- NOTE | 2024-09-12 15:06 | NUR ---
SHIFT SUMMARY MR SHINE IS ORIENTATED TO [facility], [facility], YEAR, NOT MONTH AND HE DOES NOT REMEMBER WHY HE IS HERE IN THE HOSPITAL. HE IS FORGETFUL AND NEEDS TO BE REMINDED OF RECENT EVENTS AND CONVERSATIONS. FAMILY AT BEDSIDE SAID THAT THIS IS HIS BASELINE. NO SOB AT REST IN BED ON 5L N/C. SOB NOTED ON STANDING UP BEDSIDE THE BED TO URINATE. ON CONTINUOUS PULSE OX IN THE 90S ON 5L NC. HE HAS VOIDED X1 SO FAR THIS SHIFT 350CC. GIVEN ADDITIONAL NS BOLUS AND NOW ON IVF AT 100CC/HE. BEDSIDE RENAL US DONE AND CURRENTLY IN NUCLEAR MEDICINE FOR LUNG IMAGING. HE C/O INDIGESTION/EPIGASTIC PAIN THIS MORNING WHICH WAS RELIEVED WITH TUMS. ALSO C/O SORE THROAT WHICH PERSISTS DESPITE CEPACOL LOZENGERS. MINIMAL COUGHING. SPUTUM SAMPLE REQUESTED BUT NOT OBTAINED YET. ON TELEMETRY SR WITH SOME PACS, NO CALLS FROM [facility].
[2024-09-12 15:22] LABS: Bun/Creatinine Ratio 22.6 (12.0-20.0); Calcium, Blood 8.8 mg/dL (8.5-10.1); Creatinine, Blood 1.55 mg/dL (0.60-1.20); Potassium, Blood 3.8 mmol/L (3.5-5.5)
[2024-09-12 15:48] VITALS: BP 120/62
[2024-09-12 19:56] VITALS: BP 141/71
[2024-09-12] MEDS ORDERED: NS 250 ML IV PRN (21:50)
[2024-09-13 00:01] VITALS: BP 117/101
[2024-09-13 01:26] LABS: Base Excess Venous -0.2 mmol/L; Bicarbonate Venous 24.6 mmol/L (24.0-30.0); PCO2 Venous 35.8 mmHg (38-42); pH Blood Venous 7.44 (7.34-7.37)
[2024-09-13 01:46] LABS: BASOPHILS ABSOLUTE AUTO 0.02 K/mm3 (0.00-0.23); BASOPHILS PERCENT AUTO 0 % (0-2); EOSINOPHILS PERCENT AUTO 0 % (0-6); Hematocrit 34.9 % (37.0-53.0); Hemoglobin 12.4 g/dL (13.5-17.5); IMMATURE GRAN ABSOLUTE AUTO 0.16 K/mm3 (0.00-0.10); IMMATURE GRAN PERCENT AUTO 1 % (0-1); LYMPHOCYTES ABSOLUTE AUTO 0.55 K/mm3 (0.84-5.20); LYMPHOCYTES PERCENT AUTO 4 % (21-46); MONOCYTES ABSOLUTE AUTO 0.48 K/mm3 (0.16-1.47); MONOCYTES PERCENT AUTO 3 % (4-13); Mean Corpuscular HGB 32.1 pg (26.0-34.0); Mean Corpuscular HGB Conc 35.5 g/dL (31.5-36.5); Mean Platelet Volume 10.4 fL (9.1-12.4); NEUTROPHILS ABSOLUTE AUTO 14.53 K/mm3 (1.96-9.15); NEUTROPHILS PERCENT AUTO 92 % (41-73); Platelet Count 219 K/mm3 (150-400); RDW Coefficient Variation 12.5 % (11.7-14.2); RDW Standard Deviation 41.9 fL (35.1-46.3); Red Blood Cell Count 3.86 M/mm3 (4.30-5.90); White Blood Cell Count 15.74 K/mm3 (4.00-11.30)
[2024-09-13 01:51] LABS: Mean Corpuscular Volume 90 fL (80-100)
[2024-09-13 01:54] LABS: Albumin, Blood 3.3 g/dL (3.4-5.0); Bilirubin, Total 0.4 mg/dL (0.1-1.0); Bun/Creatinine Ratio 27.7 (12.0-20.0); Calcium, Blood 9.2 mg/dL (8.5-10.1); Creatinine, Blood 1.19 mg/dL (0.60-1.20); Globulin, Blood 3.4 g/dL (2.2-4.0); Potassium, Blood 3.9 mmol/L (3.5-5.5); Total Protein, Blood 6.7 g/dL (6.4-8.2)
--- NOTE | 2024-09-13 02:02 | NUR ---
Notified Provider that patient was breathing needs increased. Patient was not voiding well with an output of 100mL at 2300. Notified the provider that patients abdomen was distend and firm. Patient has increase confusion from previous night. Patient thinks that they have been in the hospital for four days. Provider to place orders. Notified Provider that patient wanted to leave AMA. Provider notified RN that due to patient's confusion patient would need family to sign AMA. Notified Provider that Patient refuses Bi PaP/CPAP. Provider order 2.5mg IM Haldol
--- NOTE | 2024-09-13 02:03 | NUR ---
PATIENT IS NON-RECEPTIVE TO EDUCATION. PATIENT IS ARGUMENTATIVE. PATIENT IS CONCRETE IN HIS THOUGHTS THAT THE HOSPTIAL IS JUST HEAR TO MAKE MONEY AND WENT ON TO TALK ABOUT HIS BILLS, THIS RN TRIED TO REDIRECT PATIENT-PATIENT NONRECEPTIVE. PATIENT IS VERY CONFUSED ATTEMPTING TO TAKE OFF TELEMETRY, PULL AT LINES AND IS DIFFICULT TO REDIRECT. BED ALARM IS ON FOR SAFETY PATIENT IS IMPULSIVE. CALL LIGHT IS IN REACH. DISCUSSED WITH PRIMARY NURSE.
[2024-09-13] MEDS ORDERED: Haloperidol Lactate Inj. 5 MG/ML Injection IM PRN (02:05)
--- NOTE | 2024-09-13 03:57 | NUR ---
Patient received IM Haldol for aggitation. Security called prior to administration. Patient pulled IV, removed tele and oxygen. RN and charge nurse tried to reorient patient prior to giving IM Haldol. Patient is now resting comfortably with new IV, tele in placed, with continous O2 and pulse ox monitoring.
--- NOTE | 2024-09-13 04:45 | NUR ---
Patient is resting comfortably after medication given. Patient still not voiding completely. Patient had a CT of abdomen. Patient did have an eventful night. See nurse notes. Patient denies chest pain an N/V. Patient has AMS. Provider aware of patient status. Patient tele in place. SR w BBB at 81. Patient still on 6L O2. Continus pulse ox in place. Will continue to monitor until day shift resumes cares.
[2024-09-13] MEDS ORDERED: LORazepam 2 MG/ML 1ML Injection IV ONE ×2 (05:15→06:45)
[2024-09-13] MEDS ORDERED: LORazepam 2 MG/ML 1ML Injection IM ONE (05:55)
--- NOTE | 2024-09-13 06:40 | NUR ---
Notified MD, Patient managed to get out of soft restraints, Patient was swinging at staff. Patient using profanity at staff. Patient aggiatetated. Patient AMS worsing. Order 0.5mg IV ativan repeat dose if unaffective. MD ordered tough restraints if harming self or others. Notified MD patient pulled IV. MD order 1mg IM Ativan. Call if aggitation worsens.
[2024-09-13 08:08] VITALS: BP 150/104
[2024-09-13] MEDS ORDERED: Apixaban 5 MG Tab PO SCH (09:00)
[2024-09-13] MEDS ORDERED: Calcium Carbon500 MG PO (10:49)
[2024-09-13] MEDS ORDERED: CEPACOL SORE THROAT MT (10:56)
[2024-09-13] MEDS ORDERED: AZIT250 PO (10:57)
[2024-09-13] MEDS ORDERED: VISBIOME 112.51 EACH PO (10:57)
[2024-09-13] MEDS ORDERED: DELTASONE20 MG PO (10:58)
--- NOTE | 2024-09-13 11:14 | NUR ---
DISCHARGE SUMMARY PT IS ALERT AND ORIENTED TO SELF AND PERON. PT IS AGITATED, CONFUSED, AND OMBATIVE. NONREDIRECTABLE AT THIS TIME. PT REFUSED MOST OF MORNING MEDICATIONS. PT REFUSES CARE. DR SCOTT IN ROOM TO SEE PT TODAY. DISCHARGE DECIDED ON. PT FAMILY IN ROOM. DURING ADMINISTRATION OF MEDICATIONS, PT REFUSED BEFORE CALLING THIS RN A "BITCH" AND STANDING UP TO PUSH THIS NURSE. PT SON IN ROOM AND INTERVENED. THIS NURSE AND PT SON VERBALIZED THAT PT CANNOT CALL THE NURSE NAMES, AND NOT TO PUT HANDS ON STAFF. PT NONREDIRECTABLE. ALLYSON CANALES ABLE TO GET PT TO TAKE ELIQUIS, REMAINING MEDICATIONS REFUSED. PT VSS, NO COMPLAINTS OF CP/PRESSURE. PT IVS REMOVED. ALL PT BELONGINGS OOR. DISCHARGE EDUCATION GIVEN TO PT AND FAMILY. DISCHARGE PACKEY WITH FAMILY. PT DISCHARGED HOME VIA INDEPENDENT AMBULATION TO PERSONAL VEHICLE.
== END 2024-09-13 11:10 | disposition home or self-care (01) | DRG 189 ==
LOC: ER 19:07 → ERHOLD 19:08 → MEDS 19:08 → ERHOLD 23:41 → MEDS 23:41 → ERHOLD 09-12 13:31 → MEDS 09-12 13:31
PROVIDERS: Internal Medicine; Student in an Organized Health Care Education/Training Program; ADMIT Student in an Organized Health Care Education/Training Program
DX: J96.01 Acute respiratory failure with hypoxia (principal); N17.9 Acute kidney failure, unspecified; J44.1 Chronic obstructive pulmonary disease with (acute) exacerbation; E87.20 Acidosis, unspecified; E87.3 Alkalosis; I25.10 Atherosclerotic heart disease of native coronary artery without angina pectoris; I48.0 Paroxysmal atrial fibrillation; I73.9 Peripheral vascular disease, unspecified; Z86.73 Personal history of transient ischemic attack (TIA), and cerebral infarction without residual deficits; Z88.1 Allergy status to other antibiotic agents; Z88.8 Allergy status to other drugs, medicaments and biological substances; Z87.19 Personal history of other diseases of the digestive system; Z90.49 Acquired absence of other specified parts of digestive tract; Z79.899 Other long term (current) drug therapy; Z87.891 Personal history of nicotine dependence
CPT/HCPCS: 0241U; 36415; 71045; 74176; 76770; 78580; 80048; 80053; 82803; 82947; 83605; 83735; 84145; 84484; 85025; 85379; 93005; 93010; 94640; 94644; 94645; 94660; 94664; 94762; 96365; 96374; 96375; 96376; 99285-25; A9270; A9540; G0378; J0456; J0696; J1630; J1815; J2060; J2919; J7030; J7050; J7120

== ENCOUNTER 2025-03-25 11:12 | Inpatient (IN) | payer OTHER ==
[~2025-03-25] VITALS: Ht 175.3 cm; Wt 87.1 kg
[~2025-03-25 11:12] MED LIST changes: +AZIT250 PO; +CEPACOL SORE THROAT MT; +Calcium Carbon500 MG PO; +DELTASONE20 MG PO; +Lisinopril-Hct1 EAC4 PO; -MethylPREDNISolone Sod Succ 125 MG Vial IV SCH; +PSEU120ER PO; +VISBIOME 112.51 EACH PO
[2025-03-25] MEDS ORDERED: FentaNYL Citrate 50 MCG/ML 2 ML Injection IV ONE (11:35)
[2025-03-25] MEDS ORDERED: Ondansetron HCl 2 MG / ML 2ML Vial IV ONE (11:35)
[2025-03-25] MEDS ORDERED: HYDROmorphone HCl/Pf 1MG SYR IV ONE (13:55)
[2025-03-25] MEDS ORDERED: Morphine Sulfate 4 MG/1 ML Injection IV PRN (15:15)
[2025-03-25] MEDS ORDERED: Magnesium Hydroxide Conc 10 ML UDC PO PRN (15:15)
[2025-03-25] MEDS ORDERED: Ondansetron HCl 2 MG / ML 2ML Vial IV PRN (15:25)
[2025-03-25] MEDS ORDERED: Albuterol HFA200 ACT/6.7 GM INH INH PRN (15:50)
[2025-03-25 16:47] VITALS: BP 122/58
--- NOTE | 2025-03-25 16:58 | NUR ---
ADMIT: REPORT FROM ED. PT TO ROOM AT 1630. A/O, VSS. PAINFUL WITH MOVEMENT AND DIZZY WHEN LAYS FLAT, PT STATES THIS IS CHRONIC. NO DIZZINESS AT 90 DEGREES IN BED. SENSATION INTACT TO R LEG. PT AT BEDSIDE. PT ORIENTED TO ROOM AND CALL LIGHT, VERBALIZED UNDERSTANDING
[2025-03-25 17:15] LABS: BASOPHILS ABSOLUTE AUTO 0.01 K/mm3 (0.00-0.23); BASOPHILS PERCENT AUTO 0 % (0-2); EOSINOPHILS ABSOLUTE AUTO 0.00 K/mm3 (0.00-0.68); EOSINOPHILS PERCENT AUTO 0 % (0-6); Hematocrit 40.4 % (37.0-53.0); Hemoglobin 13.9 g/dL (13.5-17.5); IMMATURE GRAN ABSOLUTE AUTO 0.08 K/mm3 (0.00-0.10); IMMATURE GRAN PERCENT AUTO 1 % (0-1); LYMPHOCYTES ABSOLUTE AUTO 0.65 K/mm3 (0.84-5.20); LYMPHOCYTES PERCENT AUTO 5 % (21-46); MONOCYTES ABSOLUTE AUTO 0.56 K/mm3 (0.16-1.47); MONOCYTES PERCENT AUTO 4 % (4-13); Mean Corpuscular HGB Conc 34.4 g/dL (31.5-36.5); Mean Corpuscular Volume 92 fL (80-100); NEUTROPHILS ABSOLUTE AUTO 12.29 K/mm3 (1.96-9.15); NEUTROPHILS PERCENT AUTO 90 % (41-73); NRBC ABSOLUTE 0.00 K/mm3 (0.00-0.02); NRBC Auto 0.0 /100 WBC (0.0-0.2); Platelet Count 238 K/mm3 (150-400); RDW Coefficient Variation 12.1 % (11.7-14.2); RDW Standard Deviation 41.1 fL (35.1-46.3)
--- NOTE | 2025-03-25 17:21 | NUR ---
TELEMETY: BOX VERIFED AT THIS TIME. CHRISTIAN REPORTS HR [id number] 1ST DEGREE BLOCK.
[2025-03-25 17:32] LABS: Alanine Aminotransfer (ALT/SGP 24.0 U/L (12-78); Albumin, Blood 4.3 g/dL (3.4-5.0); Albumin/Globulin Ratio 1.3 (0.8-1.8); Anion Gap 11.0 mmol/L (3-11); Aspartate Aminotrans (AST/SGOT 36.0 U/L (12-37); Bilirubin, Total 0.6 mg/dL (0.1-1.0); Blood Urea Nitrogen 32.0 mg/dL (8-24); CO2, Blood 23.0 mmol/L (21-32); Calcium, Blood 9.3 mg/dL (8.5-10.1); Chloride, Blood 104.0 mmol/L (98-108); Creatinine, Blood 1.27 mg/dL (0.60-1.20); Globulin, Blood 3.3 g/dL (2.2-4.0); Glucose, Blood 141.0 mg/dL (70-99); Potassium, Blood 3.9 mmol/L (3.5-5.5); Sodium, Blood 134.0 mmol/L (136-145); Total Protein, Blood 7.6 g/dL (6.4-8.2)
[2025-03-25 17:36] VITALS: BP 123/90
[2025-03-25 17:48] VITALS: BP 141/69
--- NOTE | 2025-03-25 18:29 | NUR ---
"Spiritual Care | Rapid Response While rapid response ellenn responded to the Pt. this senior environmental technician invited Pts. spouse to step outside the room. Spouse displayed evidence of being a good historian. We Prayed together for the Pt. WHen the Pt. stabilized this senior environmental technician brought the spouse to [facility] and awaited the arrival of the transferring pt. SPous verbalized gratitude fo rthe spiritual care support and prayer."
--- NOTE | 2025-03-25 18:32 | NUR ---
TELE PAUSES: THIS RN LEFT PT ROOM WHILE PT WAS GOING TO EAT A SNACK AND SHORTLY AFTER LEAVING, THIS RN RECEIVED A CALL FROM [employer], STATING THAT PT WAS IN ASYSTOLE. THIS RN ENTERED ROOM WHILE PT WAS RUNNING OUT STATING THE PT NEEDED HELP. UPON ENTERING ROOM PT WAS RED IN THE FACE, A/O AND RESPONDED TO QUESTIONS AND COMPLAINS OF NAUSEA/CONTINUED DIZZINESS, PT SITTING UP AT 90% AND PT VOMITED. HAMMER SMITH CALLED AND IN ROOM, VS TAKEN AND WNL. PT DENIED CP, AND PT REPORTS THAT PT TOOK ONE BITE AND SEEMED TO GAG. ZOFRAN GIVEN. THIS RN LEFT ROOM AND WAS ON THE PHONE WITH DR. DOBSON WHEN I RECEIVED A SECOND CALL THAT PT WAS HAVING ANOTHER PAUSE. PT APPEARED THE SAME PREVIOUSLY AT BEDSIDE. STILL NAUSEATED AND DIZZY, MORE PALE AND DIAPHORITIC AFTER THIS EVENT. MARY DIETRICH RN CALLED RR AND RR TEAM IN ROOM AT ABOUT 1758. DR. OLSEN AT BEDSIDE AT ABOUT 1802.
[2025-03-25 18:33] VITALS: BP 132/52
--- NOTE | 2025-03-25 18:36 | NUR ---
Pt was transferred to PCU 15 following pauses noted on telemetry while in surgical room 217. Per report the patient took one bite of food and was shortly after nauseated and his witnessed that his face became all red and he was not able to respond. It was at this time that the pauses were noted on telemetry, and the RN came and saw the patient who was then coughing, red in the face, but able to speak, but was diaphoretic and pale. The pt is alert, oriented. While transferring the pt has had nausea with small amount of emesis. Lung sounds are clear RR 20/min, no accessory muscle use noted and no dyspnea/distress at this time. Spo2 on 2 l/min O2 weaned down from 4 l/min. The pt states his pain is 8 /10 in the right hip. PT STATES THAT HIS LAST DOSE OF ELIQUIS WAS THIS MORNING. Presently he is showing normal sinus rhythm at 73 bpm at this time. Noted are some PVCs occasionally. Suction is in hand at the patient's side. His is present with him. project engineer said she would verify that surgeon Dr. Perez is aware of pt's last dose of eliquis taken today.
--- NOTE | 2025-03-25 18:45 | NUR ---
TRANSFER: PT TRANSFERED TO PCU 15, REPORT PASSED TO MERRILL SCHREIBER. PT AT BEDSIDE AND THIS RN UPDATED PT'S SON ON PHONE OF EVENT.
--- NOTE | 2025-03-25 18:51 | NUR ---
DR. CAMPBELL NOTIFIED THAT PT TOOK HOME DOSE OF ELIQUIS TODAY AND THAT PT WAS TRANSFERED TO PCU 15
--- NOTE | 2025-03-25 19:17 | NUR ---
Bedside shift report given to MERRILL Lloyd. The pt was given Tylenol and bowel care scheduled meds as well as Flomax. Per report the pt had not voided since this morning; bladder scan was 276 cc but pt states that he does not feel need to void.
[2025-03-25 19:52] VITALS: BP 112/88
[2025-03-25] MEDS ORDERED: LORA10ER PO (20:57)
[2025-03-25] MEDS ORDERED: DONEPEZIL HCL10 MG PO (20:58)
[2025-03-25] MEDS ORDERED: Fluticasone 0.05% Nasal Spray SCH (21:00)
[2025-03-25] MEDS ORDERED: LEVE500 PO (21:01)
[2025-03-25] MEDS ORDERED: DRAMAMINE25 M2 PO (21:03)
[2025-03-25 23:53] VITALS: BP 123/72
[2025-03-26] VITALS (17 sets, daily range): BP systolic 89–154; BP diastolic 56–98
[2025-03-26 04:03] LABS: BASOPHILS ABSOLUTE AUTO 0.01 K/mm3 (0.00-0.23); BASOPHILS PERCENT AUTO 0 % (0-2); EOSINOPHILS ABSOLUTE AUTO 0.01 K/mm3 (0.00-0.68); EOSINOPHILS PERCENT AUTO 0 % (0-6); Hematocrit 40.1 % (37.0-53.0); Hemoglobin 13.8 g/dL (13.5-17.5); IMMATURE GRAN ABSOLUTE AUTO 0.07 K/mm3 (0.00-0.10); IMMATURE GRAN PERCENT AUTO 1 % (0-1); LYMPHOCYTES ABSOLUTE AUTO 0.63 K/mm3 (0.84-5.20); LYMPHOCYTES PERCENT AUTO 5 % (21-46); MONOCYTES ABSOLUTE AUTO 0.98 K/mm3 (0.16-1.47); MONOCYTES PERCENT AUTO 7 % (4-13); Mean Corpuscular HGB Conc 34.4 g/dL (31.5-36.5); Mean Corpuscular Volume 92 fL (80-100); NEUTROPHILS ABSOLUTE AUTO 12.45 K/mm3 (1.96-9.15); NEUTROPHILS PERCENT AUTO 88 % (41-73); NRBC ABSOLUTE 0.00 K/mm3 (0.00-0.02); NRBC Auto 0.0 /100 WBC (0.0-0.2); Platelet Count 266 K/mm3 (150-400); RDW Coefficient Variation 12.4 % (11.7-14.2); RDW Standard Deviation 41.8 fL (35.1-46.3)
[2025-03-26 04:25] LABS: Anion Gap 9.0 mmol/L (3-11); Blood Urea Nitrogen 37.0 mg/dL (8-24); CO2, Blood 24.0 mmol/L (21-32); Calcium, Blood 8.9 mg/dL (8.5-10.1); Chloride, Blood 105.0 mmol/L (98-108); Creatinine, Blood 1.36 mg/dL (0.60-1.20); Glucose, Blood 142.0 mg/dL (70-99); Potassium, Blood 4.4 mmol/L (3.5-5.5); Sodium, Blood 134.0 mmol/L (136-145)
[2025-03-26] MEDS ORDERED: NS 1,000 ML IV SCH (04:40)
--- NOTE | 2025-03-26 08:06 | NUR ---
SHIFT SUMMARY: PATIENT IS A&OX3-4, REPEATS QUESTIONS BUT IS EASILY REORIENTED. VITAL SIGNS STABLE. TELE SHOWED SINUS RHYTHM WITH PVC'SAND HR IN THE 70'S THROUGHOUT THE NIGHT WITH NO PAUSES PER CYTOLOGY LABORATORY MANAGER. PAIN IS MANAGED WITH IV MORPHINE, PO OXY, AND PO TYLENOL. PATIENT IS ABLE TO WIGGLE ALL FINGERS AND TOES AND DENIES NUMBNESS OR TINGLING THROUGHOUT EXTREMITIES. IV NS FLUIDS RUNNING AT 100ML/HR PER MAR. SKY DRAINING DARK YELLOW URINE OUTPUT TO GRAVITY WITH NO KINKS IN TUBING. PATIENT HAS BEEN NPO SINCE MIDNIGHT. PATIENT IS LAYING IN BED WITH CALL LIGHT IN REACH.
--- NOTE | 2025-03-26 08:50 | NUR ---
PT TAKEN TO SURGERY. HE HAS BEEN NPO SINCE MIDNIGHT. MORNING MEDS NOT GIVEN D/T PT BEING NPO.
[2025-03-26] MEDS ORDERED: Multivitamins 1 Tab PO SCH (09:00)
[2025-03-26] MEDS ORDERED: Diltiazem HCl 300 MG Cap.CD PO SCH (09:00)
[2025-03-26] MEDS ORDERED: Tranexamic Acid 100 ML IV SCH (09:05)
[2025-03-26] MEDS ORDERED: CeFAZolin Sodium 2,000 MG in NS 100 ML IV SCH (09:05)
[2025-03-26] MEDS ORDERED: Ropivacaine 0.5% HCl/Pf 123.125 MG,EPINEPHrine HCL 0.25 MG,Ketorolac Tromethamine 15 MG... INFIL SCH (09:05)
[2025-03-26] MEDS ORDERED: Chlorhexidine Mouth Care 15 ML UDC MT SCH (09:20)
[2025-03-26] MEDS ORDERED: Rocuronium Bromide 10 MG/ML 5ML Injection IV ONE (09:21)
[2025-03-26] MEDS ORDERED: FentaNYL Citrate 50 MCG/ML 2 ML Injection ONE (09:22)
[2025-03-26] MEDS ORDERED: Phenylephrine HCl 100 MCG/ML-NS 10MLSYR (1MG/10ML) ONE ×2 (09:26→10:37)
[2025-03-26] MEDS ORDERED: Ondansetron HCl 2 MG / ML 2ML Vial ONE (09:48)
[2025-03-26] MEDS ORDERED: Phenylephrine HCl 10mg/ml 1 ml Vial ONE (10:04)
[2025-03-26] MEDS ORDERED: Sugammadex Sodium 200 MG/2ML SDV (100 MG/ML) ONE (10:47)
[2025-03-26] MEDS ORDERED: Albuterol 2.5 MG/3 ML VIAL ONE (11:21)
--- NOTE | 2025-03-26 12:00 | NUR ---
PT RETURNED FROM PACU VIA BED. VS OBTAINED AND PT STATES 2/10 PAIN TO R HIP. PT IS A&Ox4 BUT FORGETFUL. HE IS ON 2LNC W/O2 SATS > 92%. SKY IN PLACE DRAINING YELLOW URINE TO GRAVITY. DRESSING TO R POSTERIOR HIP IS C/D/I WITH NO REDNESS NOTED. NO NEEDS OR CONCERNS NOTED @ THIS TIME. BED IN LOW POSITION, BED ALARM ON, CALL LIGHT, AND PERSONAL BELONGINGS IN REACH.
--- NOTE | 2025-03-26 22:01 | NUR ---
PATIENT IS STATUS POST RIGHT CYNTHIA HIP POSTERIOR REPAIR EARLIER TODAY. WITH 2-PERSON ASSIST, GAIT BELT, AND WALKER, PATIENT AMBULATED WITH STEADY GAIT WITH VERBAL CUESPROVIDED TO MAINTAIN POSTERIOR HIP PRECAUTIONS. EXPIRATORY WHEEZE NOTED WITH AMBULATION AND WHEN MOVING TO EDGE OF BED. DR. PATEL WAS NOTIFIED OF THESE FINDINGS. THIS NURSE REQUESTED DISCONTINUATION OF THE CONTINUOUS IV FLUIDS SINCE PATIENT IS ABLE TO EAT/DRINK, AND CONSIDERATION OF A CHEST-XRAY TO ASSESS FOR FLUID OVERLOAD, WELL ORDERS FOR PT/OT EVALUATION TOMORROW. DR. PATEL GAVE ORDERS TO DISCONTINUE IV FLUIDS, OBTAIN 1V CHEST-XRAY, AND TO PLACE PT/OT CONSULTS. ORDERS HAVE BEEN PLACED AT THIS TIME.
--- NOTE | 2025-03-26 22:48 | NUR ---
PATIENT REQUESTED AMBULATION IN THE HALLWAY THIS TIME INSTEAD OF ONLY THE ROOM. HE AMBULATED ABOUT 340 FEET WITH 1 PERSON SBA USING A WALKER AND GAIT BELT. DURING AMBULATION, ATIENT DENIED SHORTNESS OF BREATH BUT EXHIBITED EXPIRATORY WHEEZING THROUGHOUT. UPON RETURN TO BED, HIS SPO2 WAS IN THE LOW 80'S ON 2L NC; OXYGEN WAS INCREASED TO 3L NC WITH ENCOURAGEMENT TO BREATH IN THROUGH HIS NOSE AND BREATH OUT THROUGH HIS MOUTH WHICH THEN SHOWED HIS SPO2 >90%. PATIENT IS NOW RESTING IN BED WITH THE ROLLED AND TAPED TOWELS IN BETWEEN HIS LEGS TO MAINTAIN POSTERIOR HIP PRECAUTIONS. HIS CALL LIGHT IS WITHIN REACH AND BED ALARM IN PLACE A PRECAUTION.
--- NOTE | 2025-03-27 00:05 | NUR ---
DR. PATEL WAS NOTIFIED OF PATIENT'S INCREASED CONFUSION TONIGHT COMPARED TO THE PREVIOUS NIGHT; THE PATIENT HAS A HISTORY OF DEMENTIA AND ANESTHESIA EFFECTS FROM THE PROCEDURE YESTERDAY MAY BE CONTRIBUTING. REQUESTED SEROQUEL FOR PATIENTS RESTLESSNESS/AGITATION, DISCONTINATION OF THE SKY CATHETER (PATIENT REPEATEDLY REQUESTING REMOVAL OF IT AND CONCERED FOR HIM TO SELF-REMOVE IT WITH HIS CONFUSION), AND RESUMPTION OF HOME ALBUTEROL INHALERDUE TO WHEEZING AND INCREASED WORK OF BREATHING WITH ACTIVITY. ORDERS RECEIVED: -MELATONIN 3MG FOR PATIENTS RESTLESSNESS -DISCONTINUE SKY CATHETER -RESUME ALBTEROL INHALER HOME MEDICATION
[2025-03-27 00:10] VITALS: BP 112/92
[2025-03-27] MEDS ORDERED: Albuterol HFA200 ACT/6.7 GM INH INH PRN (00:10)
[2025-03-27 03:37] VITALS: BP 118/75
[2025-03-27 04:00] LABS: BASOPHILS ABSOLUTE AUTO 0.01 K/mm3 (0.00-0.23); BASOPHILS PERCENT AUTO 0 % (0-2); EOSINOPHILS ABSOLUTE AUTO 0.01 K/mm3 (0.00-0.68); EOSINOPHILS PERCENT AUTO 0 % (0-6); Hematocrit 37.0 % (37.0-53.0); Hemoglobin 12.4 g/dL (13.5-17.5); IMMATURE GRAN ABSOLUTE AUTO 0.11 K/mm3 (0.00-0.10); IMMATURE GRAN PERCENT AUTO 1 % (0-1); LYMPHOCYTES ABSOLUTE AUTO 0.83 K/mm3 (0.84-5.20); LYMPHOCYTES PERCENT AUTO 5 % (21-46); MONOCYTES ABSOLUTE AUTO 1.42 K/mm3 (0.16-1.47); MONOCYTES PERCENT AUTO 9 % (4-13); Mean Corpuscular HGB Conc 33.5 g/dL (31.5-36.5); Mean Corpuscular Volume 95 fL (80-100); NEUTROPHILS ABSOLUTE AUTO 12.98 K/mm3 (1.96-9.15); NEUTROPHILS PERCENT AUTO 85 % (41-73); NRBC ABSOLUTE 0.00 K/mm3 (0.00-0.02); NRBC Auto 0.0 /100 WBC (0.0-0.2); Platelet Count 228 K/mm3 (150-400); RDW Coefficient Variation 12.9 % (11.7-14.2); RDW Standard Deviation 44.7 fL (35.1-46.3)
[2025-03-27 04:20] LABS: Anion Gap 11.0 mmol/L (3-11); Blood Urea Nitrogen 37.0 mg/dL (8-24); CO2, Blood 23.0 mmol/L (21-32); Calcium, Blood 8.8 mg/dL (8.5-10.1); Chloride, Blood 106.0 mmol/L (98-108); Creatinine, Blood 1.35 mg/dL (0.60-1.20); Glucose, Blood 115.0 mg/dL (70-99); Potassium, Blood 4.0 mmol/L (3.5-5.5); Sodium, Blood 136.0 mmol/L (136-145)
--- NOTE | 2025-03-27 04:42 | NUR ---
SHIFT SUMMARY: POD 1 RIGHT CYNTHIA HIP POSTERIOR PATIENT HAS BEEN A&OX3-4, HE WILL OFTEN REPEAT QUESTIONS, BUT IS EASILY REORIENTED. BED ALARM ON A PRECAUTION. TELE SHOWS SINUS RHYTHM WITH PVC'S WITH HR BETWEEN 70'S-90'S. PAIN IS MANAGED WITH PO OXY AND TYLENOL PER SEP. PATIENTS RIGHT HIP INCISION DRESSING HAS BEEN C/D/I DURING THE SHIFT. PATIENT DENIES NUMBNESS OR TINGLING THROUGHOUT ALL EXTREMITIES. HE IS A 1P ASSIST WITH FWW AND GAIT BELT. PATIENT AMBULATED IN HIS ROOM AND THE HALLWAYS DURING THE SHIFT BUT HAD NOTEABLE WHEEZING WITH AMBULATION (SEE PRIOR NOTES). PATIENT IS CURRENTLY LAYING IN BED WITH CALL LIGHT IN REACH.
[2025-03-27 07:48] VITALS: BP 132/82
[2025-03-27 11:27] VITALS: BP 88/68
[2025-03-27 13:15] VITALS: BP 119/62
[2025-03-27] MEDS ORDERED: OXYC5 PO (15:07)
[2025-03-27 15:09] VITALS: BP 129/64
--- NOTE | 2025-03-27 15:10 | NUR ---
NOTIFIED DR. DOBSON THAT THE PT STARTED C/O CHEST PAIN AND THAT A SET OF VS WERE TAKEN AND A 12 LEAD EKG WAS DONE WELL. STATED THAT HE WILL COME DOWN AND SEE PT.
--- NOTE | 2025-03-27 16:58 | NUR ---
PT IS A&Ox4 AND ABLE TO MAKE NEEDS KNOWN. HE IS ON RA WHILE AWAKE AND 2LNC WHILE SLEEPING W/O2 SATS >92% HE IS A SBA W/FWW AND GAIT BELT FOR AMBULATION. LR RUNNING PER EMAR AND CT W/CONTRAST OF ABD IS PENDING. NO C/O PAIN 2 THIS TIME. DRESSING TO R POSTERIOR HIP C/D/I AND SITE IS FREE OF INFLAMMATION AND SWELLING. NO NEEDS OR CONCERNS NOTED @ THIS TIME. BED IN LOW POSITION, BED ALARM ON, CALL LIGHT, AD PERSONAL BELONGINGS IN REACH.
--- NOTE | 2025-03-27 18:32 | NUR ---
PT DISCHARGING HOME W/. DISCHARGE INSTRUCTIONS DISCUSSED W/PT AND . PRESCRIPTION GIVEN FOR ZIO PATCH AND INSTRUCTIONS TO COME BACK AND GET IT PLACED ON FRIDAY. PRESCRIPTION FOR OXYCODONE GIVEN WELL. PT TAKEN OUT BY MERRY.
== END 2025-03-27 18:35 | disposition home health service (06) | DRG 522 ==
LOC: ER 11:12 → SURS 15:11 → PCU 15:11 → SURS 16:09 → PCU 18:32
PROVIDERS: Orthopaedic Surgery; Student in an Organized Health Care Education/Training Program; ADMIT Student in an Organized Health Care Education/Training Program
PROC: 0SRR01Z Replacement of Right Hip Joint, Femoral Surface with Metal Synthetic Substitute, Open Approach (ICD-10-PCS; principal; 2025-03-26 09:30)
DX: S72.001A Fracture of unspecified part of neck of right femur, initial encounter for closed fracture (principal); I25.10 Atherosclerotic heart disease of native coronary artery without angina pectoris; J44.9 Chronic obstructive pulmonary disease, unspecified; I73.9 Peripheral vascular disease, unspecified; Z66 Do not resuscitate; Y04.2XXA Assault by strike against or bumped into by another person, initial encounter; I48.0 Paroxysmal atrial fibrillation; N18.31 Chronic kidney disease, stage 3a; N40.0 Benign prostatic hyperplasia without lower urinary tract symptoms; I12.9 Hypertensive chronic kidney disease with stage 1 through stage 4 chronic kidney disease, or unspecified chronic kidney disease; R10.11 Right upper quadrant pain; D72.829 Elevated white blood cell count, unspecified; I44.0 Atrioventricular block, first degree; I49.5 Sick sinus syndrome; Z79.01 Long term (current) use of anticoagulants; Z88.8 Allergy status to other drugs, medicaments and biological substances; Z88.0 Allergy status to penicillin; Z79.891 Long term (current) use of opiate analgesic; Z79.52 Long term (current) use of systemic steroids; Z86.73 Personal history of transient ischemic attack (TIA), and cerebral infarction without residual deficits; Z85.828 Personal history of other malignant neoplasm of skin; Z87.891 Personal history of nicotine dependence
CPT/HCPCS: 36415; 70450; 71045; 72125; 72170; 73030; 73552; 73590; 74177; 80048; 80053; 85025; 93005; 93010; 94761; 94762; 97110; 97161; 97530; A9270; J0166; J0690; J0735; J1885; J2270; J2371; J2405; J2704; J2795; J3010; J7030; J7120; Q9967

== ENCOUNTER 2025-04-18 13:47 | Emergency (ER) | payer OTHER ==
[~2025-04-18] VITALS: Ht 170.2 cm; Wt 81.7 kg
[~2025-04-18 13:47] MED LIST changes: +DONEPEZIL HCL10 MG PO; +DRAMAMINE25 M2 PO; +LEVE500 PO; +LORA10ER PO; +OXYC5 PO
[2025-04-18 13:54] VITALS: BP 134/90
== END 2025-04-18 14:03 | disposition home or self-care (01) ==
LOC: ER 13:47
DX: Z48.01 Encounter for change or removal of surgical wound dressing (principal)
CPT/HCPCS: 99282